=== PATIENT | female | born 1980 | race Hispanic/Latino ===

== ENCOUNTER 2016-05-24 02:22 | Emergency (ER) | payer OTHER ==
[2016-05-24 02:22] VITALS: BMI 21.9
[2016-05-24 02:38] VITALS: RESP 16; TEMP 98.3; O2SAT 100
[2016-05-24 02:47] LABS: URINE BILIRUBIN NEGATIVE (NEGATIVE); URINE BLOOD NEGATIVE (NEGATIVE); URINE COLOR Yellow (YELLOW); URINE GLUCOSE (UA) NORMAL (Normal); URINE KETONE NEGATIVE (NEGATIVE); URINE LEUKOCYTE ESTERASE 3+ Leu/uL (Negative); URINE PROTEIN NEGATIVE (NEGATIVE)
[2016-05-24 03:12] LABS: RBC URINE 1 /hpf (0-3); URINE BACTERIA RARE (<OCC); WBC URINE 80 /hpf (0-5)
--- NOTE | 2016-05-24 03:16 | C.PDOC ---
History Of Present Illness The patient, a 36 y/o female with no significant PMHx, presents to the ED for evaluation of urinary frequeny, mild dysuria and associated bilateral flank pain which began earlier today. Patient states she experienced similar symptoms when she was told she had UTI in the past. She denies fever, chills, shortness of breath, vomiting, hematuria. Time Seen by Provider: 05/24/16 02:33 Chief Complaint (Nursing): Female Genitourinary History Per: Patient History/Exam Limitations: no limitations Onset/Duration Of Symptoms: Hrs Current Symptoms Are (Timing): Still Present Additional History Per: Patient Past Medical History Reviewed: Historical Data, Nursing Documentation, Vital Signs Vital Signs: Last Vital Signs Temp 98.3 F 05/24/16 02:30 Pulse 64 05/24/16 02:30 Resp 16 05/24/16 02:30 BP 121/76 05/24/16 02:30 Pulse Ox 100 05/24/16 03:24 - Medical History PMH: No Chronic Diseases Surgical History: No Surg Hx Family History: States: Unknown Family Hx - Social History Hx Tobacco Use: Yes Hx Alcohol Use: No Hx Substance Use: No - Immunization History Hx Tetanus Toxoid Vaccination: No Hx Influenza Vaccination: No Hx Pneumococcal Vaccination: No Review Of Systems Constitutional: Negative for: Fever, Chills Respiratory: Negative for: Shortness of Breath Gastrointestinal: Negative for: Vomiting Genitourinary: Positive for: Dysuria, Frequency. Negative for: Hematuria Musculoskeletal: Positive for: Other (+b/l flank pain ) Physical Exam - Physical Exam Additional Physical Exam Comments: Constitutional: No acute distress. Head: Normocephalic. Atraumatic. Eyes: PERRL. ENT: Moist mucous membranes. Neck: Supple. Cardiovascular: Regular rate. Chest: No tenderness. Respiratory: Clear to auscultation bilaterally. GI: Soft. Suprapubic tenderness. Nondistended. Back: left-sided CVA tenderness. Musculoskeletal: No tenderness or swelling of extremities. Skin: No rash. Neurologic: Alert, no focal deficit. ED Course And Treatment O2 Sat by Pulse Oximetry: 100 (on RA) Pulse Ox Interpretation: Normal Medical Decision Making Medical Decision Making: Impression: 36 y/o female with urinary frequency, mild dysuria, b/l flank pain Plan: * labs * Cipro PO * Pyridium PO * reassess and disposition Progress Notes: labs ordered and reviewed. Patient received Cipro PO and Pyridium PO. Disposition - Disposition Disposition: HOME/ ROUTINE Disposition Time: 03:14 Condition: STABLE Prescriptions: Ciprofloxacin [Cipro] 500 mg PO BID #13 tab Phenazopyridine [Pyridium] 1 tab PO Q8 #5 tab Instructions: Urinary Tract Infection in Women (ED) - Clinical Impression Clinical Impression: UTI (urinary tract infection) - Scribe Statement The provider has reviewed the documentation as recorded by the Scribe (Olga Bustamante) Provider Attestation: All medical record entries made by the Scribe were at my direction and personally dictated by me. I have reviewed the chart and agree that the record accurately reflects my personal performance of the history, physical exam, medical decision making, and the department course for this patient. I have also personally directed, reviewed, and agree with the discharge instructions and disposition.
[2016-05-24 03:39] VITALS: BP 108/65; PULSE 65
== END 2016-05-24 03:39 | disposition home or self-care (01) ==
LOC: C.ER 02:22
DX: N39.0 Urinary tract infection, site not specified (principal)

== ENCOUNTER 2018-01-02 09:18 | Emergency (ER) | payer OTHER ==
[2018-01-02 09:18] VITALS: BMI 21.9
[2018-01-02 09:31] VITALS: BP 118/60; PULSE 74; RESP 18; TEMP 98.6; O2SAT 97
[2018-01-02] MEDS ORDERED: Silver Sulfadiazine 1% Cream (20 gm) ONE (09:44)
[2018-01-02] MEDS ORDERED: Silver Sulfadiazine 1% Cream (20 gm) TOP STA (09:45)
--- NOTE | 2018-01-02 09:45 | C.PDOC ---
History Of Present Illness 37 year old female presents to ED for evaluation of burn to right hand. Patient states she burned her right fingers with hot oil this morning at work. Notes initially there were blisters on her fingers. She reports applying burn gel to affected area and reports taking Tylenol without improvement of pain. She is up to date with tetanus vaccination. Denies weakness, numbness, or any other associated symptoms at this time. <AlyVenita L - Last Filed: 01/02/18 10:43> History Per: Patient History/Exam Limitations: no limitations Injury Occurred (Timing): Hours Ago: Type Of Burn (Context): Hot Liquid Associated Symptoms: denies: Headache, Dizziness, SOB, Cough Recent travel outside of the [place]: No Additional History Per: Patient <Venita Lu - Last Filed: 01/02/18 10:43> <Sunny Miller - Last Filed: 01/04/18 21:42> Time Seen by Provider: 01/02/18 09:32 Chief Complaint (Nursing): Burn Past Medical History Reviewed: Historical Data, Nursing Documentation, Vital Signs Vital Signs: Last Vital Signs Temp 98.6 F 01/02/18 09:23 Pulse 74 01/02/18 09:23 Resp 18 01/02/18 09:23 BP 118/60 01/02/18 09:23 Pulse Ox 97 01/02/18 09:23 Family History: States: Unknown Family Hx - Social History Hx Tobacco Use: Yes Hx Alcohol Use: No Hx Substance Use: No - Immunization History Hx Tetanus Toxoid Vaccination: No Hx Influenza Vaccination: No Hx Pneumococcal Vaccination: No <Venita Lu - Last Filed: 01/02/18 10:43> Vital Signs: Last Vital Signs Temp 98.6 F 01/02/18 09:23 Pulse 74 01/02/18 09:23 Resp 18 01/02/18 09:23 BP 118/60 01/02/18 09:23 Pulse Ox 97 01/02/18 10:44 <Sunny Miller - Last Filed: 01/04/18 21:42> Review Of Systems Except As Marked, All Systems Reviewed And Found Negative. Constitutional: Negative for: Fever, Chills Musculoskeletal: Positive for: Hand Pain (right) Skin: Positive for: Other (burn to right fingers) Neurological: Negative for: Weakness, Numbness <Venita Lu - Last Filed: 01/02/18 10:43> Physical Exam - Physical Exam Appears: Non-toxic, No Acute Distress Skin: Warm, Dry, Other (open blisters to right 3rd, and 4th digit with weeping to 4th digit. Bright erythema with blanches to right digits ) Head: Atraumatic, Normacephalic Eye(s): bilateral: Normal Inspection Oral Mucosa: Moist Neck: Normal ROM, Supple Extremity: Normal ROM (FROM of right hand digits), Capillary Refill (less than 2 seconds), No Deformity, No Swelling Neurological/Psych: Oriented x3, Normal Speech, Normal Motor, Normal Sensation <Venita Lu Last Filed: 01/02/18 10:43> ED Course And Treatment O2 Sat by Pulse Oximetry: 97 (on RA) Pulse Ox Interpretation: Normal <Venita Lu Last Filed: 01/02/18 10:43> Medical Decision Making Medical Decision Making: Impression: 37 year old female with second degree burn to right hand digits. Plan: * Motrin * Silvadene Instruct patient on wound care and follow up with burn center <Venita Lu - Last Filed: 01/02/18 10:43> Disposition Counseled Patient/Family Regarding: Diagnosis, Need For Followup - Disposition Disposition Time: 09:45 - POA Present On Arrival: None <Venita Lu - Last Filed: 01/02/18 10:43> <Sunny Miller - Last Filed: 01/04/18 21:42> - [facility] Disposition: HOME/ ROUTINE Condition: STABLE Additional Instructions: You have second degree burn to your hand. Apply Silvadene cream twice daily for 5 days to affected area. Take Acetaminophen 500mg or Ibuprofen 600mg two to three times a day as needed for pain. Keep area clean and dry If you develop increased redness,discharge, fever, streaking return to the ER. 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 - Scribe Statement The provider has reviewed the documentation as recorded by the Scribe Scotty Bustamante All medical record entries made by the Scribe were at my direction and personally dictated by me. I have reviewed the chart and agree that the record accurately reflects my personal performance of the history, physical exam, medical decision making, and the department course for this patient. I have also personally directed, reviewed, and agree with the discharge instructions and disposition. <Venita Lu - Last Filed: 01/02/18 10:43>
== END 2018-01-02 10:04 | disposition home or self-care (01) ==
LOC: C.ER 09:18
DX: T23.231A Burn of second degree of multiple right fingers (nail), not including thumb, initial encounter (principal); X10.2XXA Contact with fats and cooking oils, initial encounter; Y92.89 Other specified places as the place of occurrence of the external cause; Y99.0 Civilian activity done for income or pay